=== PATIENT | male | born 1970 | race Caucasian/White ===

== ENCOUNTER → 2017-02-26 | Outpatient (CLI) | payer MEDICARE, OTHER ==
--- NOTE | 2017-02-26 10:51 | RAD ---
Indication chronic left testicular pain. Grayscale color Doppler and spectral imaging was performed. Examination was targeted to the scrotum. The right testicle measures 3.6 x 2.9 x 2 cm and appears normal. There is normal flow to the testicle. The epididymis appears unremarkable. There is a small hydrocele. The left testicle appears normal. No mass is seen. There is normal flow. The epididymis appears unremarkable. A small hydrocele is noted, slightly larger than on the right. IMPRESSION: Normal testicles. Small hydroceles.
== END | disposition home or self-care (01) ==
LOC: US 09:14
PROVIDERS: ATTEND Urology
DX: N43.3 Hydrocele, unspecified (principal)
CPT/HCPCS: 76870

== ENCOUNTER → 2017-08-06 | Outpatient (CLI) | payer MEDICARE, OTHER | END | disposition home or self-care (01) | LOC: SURG 12:14 | PROVIDERS: ATTEND Anesthesiology | DX: M47.26 Other spondylosis with radiculopathy, lumbar region (principal); M79.1 Myalgia | CPT/HCPCS: 82947; 99214 ==

== ENCOUNTER → 2017-09-04 | Outpatient (CLI) | payer MEDICARE, OTHER ==
[~2017-09-04] MED LIST: BUPIVACAINE MPF 0.25% 10 ML VIAL. ONE; DEXAMETHASONE SOD PHOS 4 MG/ML VIAL ONE; IOHEXOL 300 MG/ML 50 ML VIAL. ONE; LIDOCAINE 1% PF 30 ML VIAL. ONE
== END | disposition home or self-care (01) ==
LOC: SURG 12:05
PROVIDERS: ATTEND Anesthesiology
DX: M54.16 Radiculopathy, lumbar region (principal)
CPT/HCPCS: 64483; 64484; J1100; J2001; J3490; Q9967

== ENCOUNTER 2019-01-12 14:10 | Emergency (ER) | payer MEDICARE, OTHER ==
[~2019-01-12] VITALS: Ht 170.2 cm; Wt 82.6 kg
[2019-01-12] MEDS ORDERED: ASPIRIN 81 MG TAB.CHEW PO ONE (14:30)
[2019-01-12 14:43] LABS: BASO # 0.3 x10^3/uL (0.0-0.2); BASO % 1 % (0-3); EOS % 0 % (0-3); HEMATOCRIT 51.3 % (39.0-53.0); HEMOGLOBIN 15.7 g/dL (13.0-17.5); LYMPH # 0.5 x10^3/uL (1.0-4.8); LYMPH % 2 % (24-48); MEAN CORPUSCULAR HEMOGLOBIN 29 pg (25-35); MEAN CORPUSCULAR HGB CONC 31 g/dL (31-37); MEAN CORPUSCULAR VOLUME 96 fL (79-100); MONO # 1.7 x10^3/uL (0.0-1.1); MONO % 8 % (0-9); NEUT # 18.4 x10^3uL (1.8-7.7); NEUT % 88 % (31-73); PLATELET COUNT 370 x10^3/uL (140-400); RED BLOOD COUNT 5.33 x10^6/uL (4.30-5.70); RED CELL DISTRIBUTION WIDTH 15.5 % (11.5-14.5); WHITE BLOOD COUNT 20.8 x10^3/uL (4.0-11.0)
[2019-01-12] MEDS ORDERED: IV NORMAL SALINE 1,000ML 1,000 ML IV ONE ×3 (14:45→16:15)
[2019-01-12] MEDS ORDERED: INSULIN REGULAR 100 UNIT/ML 3ML VIAL. IV ONE ×2 (14:45→15:15)
--- NOTE | 2019-01-12 14:46 | PHYS DOC ---
Adult General Chief Complaint Chief Complaint: SHORTNESS OF BREATH [facility] HPI 48-year-old male presents via EMS with shortness of breath. Patient states that he has been feeling short of breath and had central chest pain for the last 3 days. He does not describe the pain to me. Patient only answers questions he wants to answer. The patient states that his pain is 10 out of 10. He has not had any aspirin. He denies history of cardiac problems. He does have diabetes. The patient has had a wet sounding cough but no expectorated sputum. He denies fever or chills. The only surgery he admits to is removal of his spleen. He denies alcohol or drug use. When I ask him about the mass in his left arm, he tells admits been there for "a while". Review of Systems Review of Systems Constitutional: Fever and chills[] Eyes: Denies change in visual acuity, redness, or eye pain [] HENT: Denies nasal congestion or sore throat [] Respiratory: Cough with shortness of breath [] Cardiovascular: No additional information not addressed in HPI [] GI: Denies abdominal pain, nausea, vomiting, bloody stools or diarrhea [] : Denies dysuria or hematuria [] Musculoskeletal: Denies back pain or joint pain [] Integument: possible cellulitis [] Neurologic: Denies headache, focal weakness or sensory changes [] Endocrine: Denies polyuria or polydipsia [] All other systems were reviewed and found to be within normal limits, except as documented in this note. Current Medications Current Medications Current Medications Medications (Trade) Dose Ordered [facility] Start Time Stop Time Status Last Admin Dose Admin Aspirin (Children'S Aspirin) 324 mg 1X ONCE 01/12/19 14:30 01/12/19 14:31 UNV Allergies Allergies Allergies Coded Allergies Type Severity Reaction Last Updated Verified No Known Drug Allergies 01/12/19 No Physical Exam Physical Exam Constitutional: Well developed, well nourished, no acute distress, non-toxic appearance. [] HENT: Normocephalic, atraumatic, bilateral external ears normal, oropharynx moist, no oral exudates, nose normal. [] Eyes: PERRLA, EOMI, conjunctiva normal, no discharge. [] Neck: Normal range of motion, no tenderness, supple, no stridor. [] Cardiovascular:Heart rate regular rhythm, no murmur [] Lungs & Thorax: Bilateral breath sounds decreased but clear to auscultation [] Abdomen: Bowel sounds normal, soft, no tenderness, no masses, no pulsatile masses. [] Skin: 5 cm mass in the left forearm, possibly fluctuant with continued surrounding erythema another 4 cm.[] Back: No tenderness, no CVA tenderness. [] Extremities: No tenderness, no cyanosis, no clubbing, ROM intact, no edema. [] Neurologic: Alert and oriented X 3, normal motor function, normal sensory function, no focal deficits noted. [] Psychologic: Affect normal, judgement normal, mood normal. [] EKG EKG Sinus rhythm, rate 75, wide QRS complexes at 154, no ST elevation or depressions [] Radiology/Procedures Radiology/Procedures [] Impressions: EXAM: Chest, single view. HISTORY: Shortness of air. COMPARISON: None. FINDINGS: A frontal view of the chest is obtained. There is suspected bilateral lower lobe atelectasis. There is no consolidation, pleural effusion or pneumothorax. The heart is normal in size. IMPRESSION: Suspected bilateral lower lobe atelectasis. Electronically signed by: Gay Ashton MD (01/12/2019 2:58 PM) [facility] DICTATED AND SIGNED BY: GAY ASHTON MD DATE: 01/12/19 1458 CC: DARIO MUNOZ DO; JOSEPHINE COLÓN SENIOR MECHANICAL ENGINEER ~ Course & Med Decision Making Course & Med Decision Making Pertinent Labs and Imaging studies reviewed. (See chart for details) On arrival the patient's blood sugars over 500. We'll give him a liter of normal saline. His workup is pending. The patient was lying in bed and we are waiting for his labs, he began to go into an irregular rhythm with a rate of 152. It appeared to be ventricular fibrillation on the monitor. The patient is still awake and able to answer questions. ECG shows a regular rhythm which looks like wide complex tachycardia, rate 152, QRS of 164. Immediate defibrillation is not indicated given his stable blood pressure and the fact that he appears to be tolerating this increased rate. We will give him 150 mg of amiodarone over 10 minutes. I shared the ECG with Dr. العراقي and he did not see any acute cardiac cause. The patient's potassium is 5.9. His blood sugar is over 600. His anion gap is 32. His BUN is 40 and his creatinine is 1.9. He has been given 20 units of insulin IV as well as 2L normal saline. We did additionally give 1 g of calcium gluconate and 1 amp of bicarbonate. I will give an additional amp of bicarbonate and another liter of saline when available. The 150 mg bolus of amiodarone slow the patient's heart rate to 108 temporarily. We will start an amniodarone drip. The patient stabilized and his heart rate improved to 89 with back into sinus rhythm. A Hines has been inserted and 40mg of lasix IV was given. I discussed the patient with Dr. King the hospitalist at [facility] and he has accepted the patient for transfer and admission to the ICU. Greater than 35 minutes of critical care time was spent on this patient exclusive of other billable procedures. [] Dragon Disclaimer Dragon Disclaimer This electronic medical record was generated, in whole or in part, using a voice recognition dictation system. Departure Departure: Impression: Primary Impression: Wide-complex tachycardia Additional Impressions: Acute kidney failure DKA (diabetic ketoacidoses) Dehydration Hyperkalemia Cellulitis of left arm Disposition: 02 XFER SHT-TRM HOSP Condition: GUARDED Referrals: JOSEPHINE COLÓN SENIOR MECHANICAL ENGINEER (PCP) Problem Qualifiers Additional Impressions: Acute kidney failure Acute renal failure type: unspecified Qualified Codes: N17.9 - Acute kidney failure, unspecified DKA (diabetic ketoacidoses) Diabetes mellitus type: type 2 Diabetes mellitus complication detail: without coma Qualified Codes: E11.10 - Type 2 diabetes mellitus with ketoacidosis without coma DARIO MUNOZ DO Jan 12, 2019 14:46
[2019-01-12 14:59] LABS: ALBUMIN 3.6 g/dL (3.4-5.0); ALBUMIN/GLOBULIN RATIO 0.8 (1.0-1.7); ALK PHOS 121 U/L (46-116); ALT (SGPT) 106 U/L (16-63); AST (SGOT) 387 U/L (15-37); BLOOD UREA NITROGEN 40 mg/dL (8-26); BUN/CREATININE RATIO 21 (6-20); CALCIUM 9.3 mg/dL (8.5-10.1); CHLORIDE 90 mmol/L (98-107); CREATININE 1.9 mg/dL (0.7-1.3); GFR 37.7; POTASSIUM 5.9 mmol/L (3.5-5.1); SODIUM 127 mmol/L (136-145); TOTAL BILIRUBIN 0.7 mg/dL (0.2-1.0); TOTAL PROTEIN 8.4 g/dL (6.4-8.2)
[2019-01-12 14:59] LABS: INFLUENZA A PATIENT NEGATIVE (NEGATIVE); INFLUENZA B PATIENT NEGATIVE (NEGATIVE)
--- NOTE | 2019-01-12 15:01 | RAD ---
EXAM: Chest, single view. HISTORY: Shortness of air. COMPARISON: None. FINDINGS: A frontal view of the chest is obtained. There is suspected bilateral lower lobe atelectasis. There is no consolidation, pleural effusion or pneumothorax. The heart is normal in size. IMPRESSION: Suspected bilateral lower lobe atelectasis. Electronically signed by: Gay Ramesh MD (01/12/2019 2:58 PM) [facility]
[2019-01-12 15:07] LABS: ANION GAP 32 (6-14)
[2019-01-12 15:10] LABS: CARBON DIOXIDE < 5 mmol/L (21-32); GLUCOSE 671 mg/dL (70-99)
[2019-01-12] MEDS ORDERED: CALCIUM GLUCONATE 1,000 MG/10 ML VIAL ONE (15:12)
[2019-01-12] MEDS ORDERED: CALCIUM GLUCONATE 1,000 MG/10 ML VIAL IV ONE (15:15)
[2019-01-12] MEDS ORDERED: SODIUM BICARB ADULT 8.4% 50 MEQ/50 ML DISP.SYRIN. IV ONE ×2 (15:15→16:15)
[2019-01-12 15:21] LABS: BARBITURATES NEG (NEG); BENZODIAZEPINES NEG (NEG); CANNABINOIDS POS (NEG); COCAINE NEG (NEG); METHADONE NEG (NEG); OPIATES NEG (NEG); PHENCYCLIDINE NEG (NEG)
[2019-01-12 15:22] LABS: AMPHETAMINE/METHAMPHETAMINE NEG (NEG)
[2019-01-12 15:24] LABS: BILIRUBIN,URINE NEG (NEG); CLARITY,URINE CLEAR; COLOR,URINE YELLOW; GLUCOSE,URINE 500 mg/dL (NEG)
[2019-01-12 15:25] LABS: BACTERIA,URINE 0 /HPF (0-FEW); NITRITE,URINE NEG (NEG); RBC,URINE OCC /HPF (0-2); SQUAMOUS EPITHELIAL CELL,UR FEW /LPF; UROBILINOGEN,URINE 0.2 mg/dL (0.2 mg/dL); WBC,URINE OCC /HPF (0-4)
[2019-01-12] MEDS ORDERED: IV DEXTROSE 5% 100 ML IV ONE (15:39)
[2019-01-12] MEDS ORDERED: AMIODARONE 150 MG in IV DEXTROSE 5% 100 ML IVP ONE (15:45)
[2019-01-12 15:47] LABS: % BANDS 3 % (0-9); % LYMPHS 1 % (24-48); % MONOS 7 % (0-10); % SEGS 89 % (35-66); PLT ESTIMATE ADEQUATE (ADEQUATE)
[2019-01-12] MEDS ORDERED: AMIODARONE 900 MG in IV DEXTROSE 5% 500 ML IV ONE (16:00)
[2019-01-12] MEDS ORDERED: SODIUM BICARB PED 8.4% 10 MEQ/10 ML DISP.SYRIN. IV ONE (16:15)
[2019-01-12] MEDS ORDERED: FUROSEMIDE 40 MG/4 ML VIAL IVP ONE (16:15)
[2019-01-12] MEDS ORDERED: SODIUM BICARB ADULT 8.4% 50 MEQ/50 ML DISP.SYRIN. ONE (17:00)
[2019-01-12 19:15] VITALS: BP 123/70
--- NOTE | 2019-01-13 12:26 | EKG ---
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
--- NOTE | 2019-01-13 12:33 | EKG ---
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
== END 2019-01-12 19:49 | disposition short-term general hospital (02) ==
LOC: ER 14:22
DX: R00.0 Tachycardia, unspecified (principal); N17.9 Acute kidney failure, unspecified; E11.10 Type 2 diabetes mellitus with ketoacidosis without coma; E86.0 Dehydration; E87.5 Hyperkalemia; L03.113 Cellulitis of right upper limb
CPT/HCPCS: 36415; 51702; 71045; 80053; 80307; 81001; 82947; 83880; 84484; 85007; 85025; 87804; 93005; 96361; 96365; 96366; 96375; 96376; 99291; J0282; J0610; J1815; J1940; J7030

== ENCOUNTER → 2019-09-24 | Outpatient (CLI) | payer MEDICARE, OTHER ==
[~2019-09-24] MED LIST changes: -BUPIVACAINE MPF 0.25% 10 ML VIAL. ONE; -DEXAMETHASONE SOD PHOS 4 MG/ML VIAL ONE; -IOHEXOL 300 MG/ML 50 ML VIAL. ONE; +IOHEXOL 300 MG/ML 75 ML VIAL. IV ONE; -LIDOCAINE 1% PF 30 ML VIAL. ONE
[2019-09-24 10:13] LABS: CREATININE 1.1 mg/dL (0.7-1.3); GFR 70.9
--- NOTE | 2019-09-24 16:26 | RAD ---
Examination: CT CHEST W/CONTRAST History: Sternal pain. Status post CABG. Comparison/Correlation: None Findings: Axial images of the chest were obtained following IV contrast. Sternal wires are present. There is a fluid collection throughout the length of the sternotomy extending from the level of the manubrium to the xiphoid process. This fluid collection measures up to 5.2 cm anteroposterior by 2.1 cm transverse by 20.5 cm longitudinal. Circumferential thickened wall about this collection is noted. This collection abuts the anterior mediastinum. Multiple old anterolateral right rib fractures are present. Right posterior lower thoracic rib fracture also seen. Old left lower lateral rib fractures are also present. No infiltrates or pleural effusion. No pericardial effusion. Thoracic aorta is unremarkable. No enlarged thoracic lymph nodes. Cholecystectomy noted. Left renal superior pole cyst is present. Absence of the spleen consistent with surgical history noted. Atrophy of the pancreatic body and tail is notable. Posterior to the stomach, there is a 6.4 cm x transverse 4 cm x 5.6 cm longitudinal well-circumscribed complex collection or mass with Hounsfield units of 70. Impression: Large postoperative seroma is noted throughout the entire extent of the sternotomy. Posterior left subdiaphragmatic mass or collection. This may represent a complex seroma or old complex hematoma related to previous surgical intervention. Correlate with prior exams if available and history in determining further interval evaluation with CT of the abdomen without and with contrast to further characterize. No infiltrate. PQRS Compliance Statement: One or more of the following individualized dose reduction techniques were utilized for this examination: 1. Automated exposure control 2. Adjustment of the mA and/or kV according to patient size 3. Use of iterative reconstruction technique Electronically signed by: Chidi Miller MD (09/24/2019 4:22 PM) [facility]
== END | disposition home or self-care (01) ==
LOC: CT 09:01
PROVIDERS: ATTEND Surgery Vascular Surgery
DX: T82.218A Other mechanical complication of coronary artery bypass graft, initial encounter (principal); N28.1 Cyst of kidney, acquired; K86.89 Other specified diseases of pancreas; Z95.1 Presence of aortocoronary bypass graft; Z90.49 Acquired absence of other specified parts of digestive tract; Z90.89 Acquired absence of other organs; Y83.2 Surgical operation with anastomosis, bypass or graft as the cause of abnormal reaction of the patient, or of later complication, without mention of misadventure at the time of the procedure; Y71.3 Surgical instruments, materials and cardiovascular devices (including sutures) associated with adverse incidents; Y92.89 Other specified places as the place of occurrence of the external cause
CPT/HCPCS: 71260; 82565; 84520; Q9967

== ENCOUNTER → 2019-09-29 | Outpatient (CLI) | payer MEDICARE, OTHER ==
--- NOTE | 2019-09-29 16:22 | RAD ---
EXAM: Ultrasound neck soft tissues. HISTORY: Palpable cervical foci and neck pain. COMPARISON: None. FINDINGS: Sonographic evaluation of the abdominal site of concern along the left submandibular region was performed. This reveals a prominent lymph node with thickened cortex measuring 2.2 x 2.0 x 1.2 cm. Multiple smaller nodes in the left neck also have prominent cortices and measure up to 3.0 x 2.0 x 0.9 cm. Images of the right neck were also obtained. This reveals a small lymph node measuring 6 mm. IMPRESSION: 1. Multiple enlarged left lymph nodes correspond with the site of concern along the left neck. These are indeterminate but likely reactive in the absence of known malignancy. Imaging follow-up after treatment is recommended. These are amenable to percutaneous ultrasound guided biopsy if the diagnosis remains unclear. Electronically signed by: Tootie Figueroa MD (09/29/2019 4:18 PM) [facility]
== END | disposition home or self-care (01) ==
LOC: US 12:27
PROVIDERS: ATTEND Family Medicine
DX: M53.82 Other specified dorsopathies, cervical region (principal)
CPT/HCPCS: 76536

== ENCOUNTER 2020-01-04 11:28 | Emergency (ER) | payer MEDICARE, OTHER ==
[~2020-01-04] VITALS: Ht 170.2 cm; Wt 94.0 kg
[2020-01-04 11:30] VITALS: BP 110/70
--- NOTE | 2020-01-04 12:03 | PHYS DOC ---
Past History Past Medical History: COPD, Hypertension Past Surgical History: Spleenectomy Alcohol Use: None Drug Use: Other Adult General Chief Complaint Chief Complaint: KNEE INJURY [facility] HPI Patient is a 49-year-old male who presents with complaint of right knee, left ankle and foot and lower back pain after falling yesterday. Patient states that he was drinking something when he started to choke and when he choked, his legs gave out on him and he fell. Patient rates his pain as moderate.[] Review of Systems Review of Systems Constitutional: Denies fever or chills [] Respiratory: Denies cough or shortness of breath [] Cardiovascular: No additional information not addressed in HPI [] Musculoskeletal: Denies back pain or joint pain [] Integument: Positive left ankle and foot, right knee and lower back lesions [] Neurologic: Denies headache, focal weakness or sensory changes [] Allergies Allergies Allergies Coded Allergies Type Severity Reaction Last Updated Verified No Known Drug Allergies 01/12/19 No Physical Exam Physical Exam Constitutional: Well developed, well nourished, no acute distress, non-toxic appearance. [] Cardiovascular:Heart rate regular rhythm, no murmur [] Lungs & Thorax: Bilateral breath sounds clear to auscultation [] Back: There is tenderness to palpation in the left lower lumbar paraspinal musculature. [] Extremities: Examination of right knee demonstrates tenderness to palpation overlying the MCL upper portion. No ligamentous laxity is noted on exam. Left ankle and foot demonstrates no appreciable visible abnormality but there is tenderness anteriorly around the mortise. [] Neurologic: Alert and oriented X 3, no focal deficits noted. [] Current Patient Data Vital Signs Vital Signs Date Time Temp Pulse Resp B/P (MAP) Pulse Ox O2 Delivery O2 Flow Rate FiO2 01/04/20 11:30 98.2 84 18 110/70 (83) 97 Room Air EKG EKG [] Radiology/Procedures Radiology/Procedures [] Impressions: X-ray imaging of the lumbar spine as well as the right knee and left ankle and foot demonstrates no acute bony abnormalities. Course & Med Decision Making Course & Med Decision Making Pertinent Labs and Imaging studies reviewed. (See chart for details) [] Dragon Disclaimer Dragon Disclaimer This electronic medical record was generated, in whole or in part, using a voice recognition dictation system. Departure Departure: Impression: Primary Impression: Right knee pain Additional Impressions: Left foot pain Low back strain Disposition: 01 HOME, SELF-CARE Condition: STABLE Referrals: ANDERS ALAN MD (PCP) Patient Instructions: Lumbosacral Strain, Musculoskeletal Pain Scripts Tramadol Hcl (TRAMADOL HCL) 50 Mg Tablet 50 MG PO PRN Q6HRS PRN for PAIN, #12 TAB Prov: JULIANO PAYNE Jr. DO 01/04/20 Orphenadrine Citrate (ORPHENADRINE CITRATE) 100 Mg Tablet.er 1 TAB PO BID PRN for MUSCLE SPASMS, #14 TAB Prov: JULIANO PAYNE Jr. DO 01/04/20 Naproxen (NAPROSYN) 500 Mg Tablet 1 TAB PO BID PRN for PAIN, #20 TAB 0 Refills Prov: JULIANO PAYNE Jr. DO 01/04/20 Problem Qualifiers Primary Impression: Right knee pain Chronicity: acute Qualified Codes: M25.561 - Pain in right knee Additional Impressions: Low back strain Encounter type: initial encounter Qualified Codes: S39.012A - Strain of muscle, fascia and tendon of lower back, initial encounter JULIANO PAYNE Jr. DO Jan 04, 2020 12:03
--- NOTE | 2020-01-04 12:39 | RAD ---
AP, oblique, and lateral views of the right knee were obtained. Indication: Pain after fall Comparison: none. Findings: No fracture, dislocation, significant degenerative changes, or effusion is seen. Impression: 1. Unremarkable examination of the right knee. Electronically signed by: Toney Anderson MD (01/04/2020 12:36 PM) [id number]
--- NOTE | 2020-01-04 12:41 | RAD ---
FOOT LEFT 3V, ANKLE LEFT 3V History: Fall. Pain. Technique: 3 views left ankle and 3 views left foot Comparison: None. Findings: Internal fixation distal fibula and medial malleolus healed fractures. Symmetric ankle mortise. No acute fracture. Linear density within the distal tibia, may relate to prior trauma. Normal alignment of the foot. No fracture. Impression: 1. No acute osseous abnormality. 2. Prior internal fixation distal fibula and medial malleolus. Electronically signed by: Mikel Melendez DO (01/04/2020 12:38 PM) [id number]
--- NOTE | 2020-01-04 12:43 | RAD ---
LUMBAR SPINE 2-3V History: Fall. Pain. Technique: 3 views lumbar spine. Comparison: None. Findings: Mild grade 1 anterolisthesis L5 on S1. Otherwise, normal alignment. Normal vertebral body height. No fracture. Mild multilevel degenerative disc changes. Moderate lower lumbar facet arthropathy. Surgical clips right upper quadrant. Impression: 1. No acute osseous abnormality. 2. Multilevel lumbar spondylosis. 3. Grade 1 anterolisthesis L5 on S1. Electronically signed by: Mikel Melendez DO (01/04/2020 12:40 PM) [id number]
[2020-01-04] MEDS ORDERED: TRAM50TA PO (13:04)
[2020-01-04] MEDS ORDERED: ORPH-16 PO (13:04)
[2020-01-04] MEDS ORDERED: NAPR-683 PO (13:04)
== END 2020-01-04 13:30 | disposition home or self-care (01) ==
LOC: ER 11:28
DX: S39.012A Strain of muscle, fascia and tendon of lower back, initial encounter (principal); M79.672 Pain in left foot; M25.561 Pain in right knee; J44.9 Chronic obstructive pulmonary disease, unspecified; I10 Essential (primary) hypertension; W18.39XA Other fall on same level, initial encounter; Y93.89 Activity, other specified; Y92.89 Other specified places as the place of occurrence of the external cause; Y99.8 Other external cause status
CPT/HCPCS: 72100; 73562; 73610; 73630; 99284

== ENCOUNTER → 2020-04-11 | Outpatient (CLI) | payer MEDICARE, OTHER ==
[~2020-04-11] MED LIST changes: +CONTRAST GIVEN MC PRN; -IOHEXOL 300 MG/ML 75 ML VIAL. IV ONE; +IOHEXOL 350 MG/ML 100 ML VIAL. IV ONE; +NAPR-683 PO; +ORPH-16 PO; +TRAM50TA PO
--- NOTE | 2020-04-11 15:13 | RAD ---
CT ANGIOGRAPHY CHEST INDICATION: Reason: ELEVATED D DIMER SOB COUGH CHEST PAIN / Spl. Instructions: / History: . Comparison: 09/24/2019. TECHNIQUE: Following the uneventful administration of intravenous contrast, 100 cc Omnipaque 350, axial CT sections were obtained through the lungs and upper abdomen. Multiplanar reconstructions and MIP images were obtained. [facility] compliance statement: One or more of the following individualized dose reduction techniques were utilized for this examination: 1. Automated exposure control 2. Adjustment of the mA and/or kV according to patient size 3. Use of iterative reconstruction technique FINDINGS: Lungs and Airways: No pulmonary mass or consolidation. No abnormality of the central airways. Pleura: The pleural spaces are normal. Heart and Mediastinum: The visualized thyroid is normal in size and attenuation. No axillary or supraclavicular lymphadenopathy. No mediastinal, hilar or retrocrural lymphadenopathy. Cardiomegaly. Coronary artery atherosclerotic disease. No pericardial effusion. The great vessels of the thorax are normal. Abdomen: Cholecystectomy. Splenectomy. Left subdiaphragmatic mass measuring 6 x 4 cm is stable since 2014, possibly residual splenic fragment. Bones and Soft Tissues: Degenerative changes spine. Median sternotomy with dehiscence measuring 3.2 cm in width, increased from 09/24/2019. Fluid collection extending along the sternotomy has decreased since 09/24/2019. IMPRESSION: 1. No evidence of pulmonary thromboembolic disease. 2. No pulmonary mass or consolidation. 3. Dehiscent median sternotomy, with progressive widening since 09/24/2019. Electronically signed by: Ranjan Eduardo MD (04/11/2020 3:10 PM) [facility]
== END ==
LOC: CT 13:33
PROVIDERS: ATTEND Family Medicine
DX: R07.89 Other chest pain (principal); R79.89 Other specified abnormal findings of blood chemistry
CPT/HCPCS: 71275; Q9967

== ENCOUNTER → 2020-11-01 | Outpatient (CLI) | payer MEDICARE, OTHER ==
[~2020-11-01] MED LIST changes: -CONTRAST GIVEN MC PRN; -IOHEXOL 350 MG/ML 100 ML VIAL. IV ONE
--- NOTE | 2020-11-01 18:27 | CARD ---
MR#: [id number] Date of Study: 11/01/2020 Ordering Physician: BRYNN RICHARDS, Referring Physician: BRYNN RICHARDS, Tech: Peyton Swan APPROVED REPORT EXAM: Two-dimensional and M-mode echocardiogram with Doppler and color Doppler. Other Information Quality : AverageHR: 81bpm Technically limited study due to body habitus. INDICATION Cardiac Disease: CAD RISK FACTORS Hypertension Hyperlipidemia Diabetes Smoking 2D DIMENSIONS RVDd4.6 (2.9-3.5cm)Left Atrium(2D)3.8 (1.6-4.0cm) IVSd1.0 (0.7-1.1cm)Aortic Root(2D)3.3 (2.0-3.7cm) LVDd5.1 (3.9-5.9cm)LVOT Diameter2.1 (1.8-2.4cm) PWd1.0 (0.7-1.1cm)LVDs2.6 (2.5-4.0cm) FS (%) 47.9 %SV97.0 ml LVEF(%)79.1 (>50%) Aortic Valve AoV Peak Ascencion.138.7cm/sAoV VTI25.8cm AO Peak GR.7.7mmHgLVOT Peak Ascencion.113.3cm/s LVOT VTI 20.41cmAO Mean GR.5mmHg LIVIA (VMAX)2.95va7SCI (VTI)2.80cm2 Mitral Valve MV E Xzqultxu67.6cm/sMV DECEL AIQM511ga MV A Qvsudtzn90.7cm/sE/A Ratio1.1 Pulmonary Valve PV Peak Sdznsgip28.9cm/sPV Peak Grad.2mmHg LEFT VENTRICLE The left ventricle is normal size. There is normal left ventricular wall thickness. The left ventricu lar systolic function is normal and the ejection fraction is within normal range. The Ejection Fracti on is 55%. There is normal LV segmental wall motion. Transmitral Doppler flow pattern is Grade I-abno rmal relaxation pattern. RIGHT VENTRICLE The right ventricle is normal size. There is normal right ventricular wall thickness. The right ventr icular systolic function is normal. ATRIA The left atrium size is normal. The right atrium size is normal. The interatrial septum is intact wit h no evidence for an atrial septal defect or patent foramen ovale as noted on 2-D or Doppler imaging. AORTIC VALVE Grossly normal. Not well visualized. Doppler and Color Flow revealed no significant aortic regurgitat ion. There is no significant aortic valvular stenosis. Calculated aortic valve area is 3.6 cm2 with m aximum pressure gradient of 7 mmHg and mean pressure gradient of 5 mmHg. MITRAL VALVE Grossly normal, not well visualized. There is no evidence of mitral valve prolapse. There is no candy l valve stenosis. Doppler and Color-flow revealed trace mitral regurgitation. TRICUSPID VALVE Grossly normal. Not well visualized. Doppler and Color Flow revealed no tricuspid valve regurgitation noted. There is no tricuspid valve stenosis. PULMONIC VALVE The pulmonic valve is not well visualized. Doppler and Color Flow revealed trace pulmonic valvular re gurgitation. There is no pulmonic valvular stenosis. GREAT VESSELS The aortic root is normal in size. The ascending aorta is normal in size. The IVC is normal in size a nd collapses >50% with inspiration. PERICARDIAL EFFUSION There is no evidence of significant pericardial effusion. Critical Notification Critical Value: No <Conclusion> The left ventricular systolic function is normal and the ejection fraction is within normal range. Th e Ejection Fraction is 55%. There is normal LV segmental wall motion. Technically difficult study. Signed by : Torsten العراقي, Electronically Approved : 11/01/2020 18:27:25
== END ==
LOC: ECHO 12:50
PROVIDERS: ATTEND Internal Medicine Cardiovascular Disease
DX: I25.10 Atherosclerotic heart disease of native coronary artery without angina pectoris (principal)
CPT/HCPCS: 93306

== ENCOUNTER 2021-11-19 17:32 | Emergency (ER) | payer OTHER ==
[~2021-11-19] VITALS: Ht 170.2 cm; Wt 94.0 kg
--- NOTE | 2021-11-19 19:17 | PHYS DOC ---
Past History Past Medical History: COPD, Hypertension Past Surgical History: Spleenectomy, Other Additional Past Surgical Histo: TRIPLE BYPASS Alcohol Use: None Drug Use: Other Adult General Chief Complaint Chief Complaint: MECHANICAL FALL HPI HPI Patient is a 51-year-old male who presents with low back and buttock pain after falling on the ice backwards a week ago. States that the pain is about 6 out of 10, dull and achy in nature. Denies any numbness/weakness/tingling. Denies any trouble sitting, standing or walking. Denies any trouble making urine or stool. States he is taken occasional Tylenol with little to no help. States he has not seen his physician. Review of Systems Review of Systems Review of systems otherwise unremarkable except noted in HPI Allergies Allergies Allergies Coded Allergies Type Severity Reaction Last Updated Verified No Known Drug Allergies 01/12/19 No Physical Exam Physical Exam Constitutional: Well developed, well nourished, no acute distress, non-toxic appearance. [] HENT: Normocephalic, atraumatic, Eyes: conjunctiva normal, no discharge. [] Neck: Normal range of motion, no tenderness, supple, no stridor. [] Cardiovascular:Heart rate regular rhythm, no murmur [] Lungs & Thorax: Bilateral breath sounds clear to auscultation [] Abdomen: soft, no tenderness, no masses, no pulsatile masses. [] Skin: Warm, dry, no erythema, no rash. [] Back: Generalized lumbar paraspinal muscle tenderness with no deformities, bruising or step-offs, no CVA tenderness. [] Extremities: No tenderness, no cyanosis, no clubbing, ROM intact, no edema. [] Neurologic: Alert and oriented X 3, normal motor function, normal sensory function, able to sit, stand and walk without issue, no focal deficits noted. [] Psychologic: Affect normal, judgement normal, mood normal. [] Current Patient Data Vital Signs Vital Signs Date Time Temp Pulse Resp B/P (MAP) Pulse Ox O2 Delivery O2 Flow Rate FiO2 11/19/21 18:21 98.1 77 18 108/60 (76) 95 Room Air EKG EKG [] Radiology/Procedures Radiology/Procedures [] Heart Score C/O Chest Pain: No Risk Factors: Risk Factors: DM, Current or recent (<one month) smoker, HTN, HLP, family history of CAD, obesity. Risk Scores: Risk Factors: DM, Current or recent (<one month) smoker, HTN, HLP, family history of CAD, obesity. Course & Med Decision Making Course & Med Decision Making Patient is a 51-year-old male who presents with low back and buttock pain after slipping on the ice a week ago Vital signs nonconcerning. Physical exam noted above. Given ice and Tylenol. Imaging with no acute osseous abnormalities. Discussed all findings with patient. Discussed symptom management at home. Advised to follow-up with primary care physician. Gave return precautions to the ED. Patient agreeable, verbalized understanding and agreed with plan of discharge [] Dragon Disclaimer Dragon Disclaimer This electronic medical record was generated, in whole or in part, using a voice recognition dictation system. Departure Departure: Impression: Primary Impression: Back pain Disposition: HOME / SELF CARE / HOMELESS Condition: GOOD Referrals: ANDERS ALAN MD (PCP) Patient Instructions: RICE - Routine Care for Injuries Additional Instructions: Thank you for coming into the emergency department tonight and allowing us to take care of you. Please read the attached information carefully to go over things we discussed. You can use Tylenol, ibuprofen and ice packs as needed. Please follow-up with your primary care physician as soon as you can. Please come back with new or concerning symptoms as we discussed. MAXINE MORTON MD Nov 19, 2021 19:17
[2021-11-19] MEDS ORDERED: ACETAMINOPHEN 500 MG TABLET PO ONE (19:30)
--- NOTE | 2021-11-19 20:29 | RAD ---
CT study lumbar spine without contrast Clinical indications: Fell onto back on ice one week ago. Persistent back pain. TECHNIQUE: Noncontrast helical CT scanning of the lumbar spine was performed. Multiplanar 2-D reconst ructions were generated. PQRS compliance Statement One or more of the following individualized dose reduction techniques were utilized for this study: 1. Automated exposure control 2. Adjustment of the mA and/or kV according to patient size 3. Use of iterative reconstruction technique FINDINGS: Transverse processes are intact. No compression fracture or discitis or lytic process is ev ident. There is a grade 1 anterolisthesis of L5-S1 secondary to bilateral facet arthropathy. No spond ylolysis is seen. There is a mild diffuse disc protrusion at this level. There is facet arthropathy m ore prominent on the left side which results in severe narrowing of the left neural foramen. There is moderate to severe narrowing of the right neural foramen at this level. Spinal canal stenosis is onl y mild at this level. There is a diffuse disc protrusion at L4-5. There is a more focally prominent l eft paracentral focal disc protrusion anteriorly which does indent the thecal sac at L4-5. There is f acet arthropathy at L4-5. These findings combine to form a moderate spinal canal is stenosis at L4-5. There is moderate to severe narrowing of the left neural foramen and mild narrowing of the right danisha ral foramen at this level. There is a lytic lesion with endosteal scalloping and thinning of the [place] ex of the posterior left iliac bone. IMPRESSION: No acute compression fracture. Grade 1 anterolisthesis of L5-S1. Spinal canal stenosis at L5-S1 and more prominently at L4-5. There is a prominent left paracentral di sc protrusion at L4-5. There is significant narrowing of the neural foramina at L4-5 and L5-S1. Radiolucent lesion of the left iliac bone. Recommend outpatient MRI study of the posterior left iliac bone/pelvis with and without contrast for further evaluation. Electronically signed by: Frankie Edmond MD (11/19/2021 8:27 PM) [id number]
--- NOTE | 2021-11-19 21:29 | RAD ---
Exam: Sacrum 2 views INDICATION: Fall on ice multiple times TECHNIQUE: Frontal and lateral views of the sacrum and coccyx Comparisons: None FINDINGS: Bone mineralization is normal. No acute or healed fractures. Soft tissues are unremarkable. Joint spa adiel are well-maintained. IMPRESSION: No acute osseous abnormality. Electronically signed by: Margarita Coe MD (11/19/2021 9:27 PM) SIMBA
[2021-11-19 22:29] VITALS: BP 110/66
== END 2021-11-19 20:59 | disposition home or self-care (01) ==
LOC: ER 17:32
DX: M54.59 Other low back pain (principal); J44.9 Chronic obstructive pulmonary disease, unspecified; I10 Essential (primary) hypertension; W00.0XXA Fall on same level due to ice and snow, initial encounter; Y93.89 Activity, other specified; Y92.89 Other specified places as the place of occurrence of the external cause; Y99.8 Other external cause status
CPT/HCPCS: 72131; 72220; 99284

== ENCOUNTER → 2022-01-02 | Outpatient (CLI) | payer MEDICARE, OTHER ==
--- NOTE | 2022-01-02 17:53 | CARD ---
MR#: [id number] Date of Study: 01/02/2022 Ordering Physician: BRYNN WILKINS, Referring Physician: BRYNN WILKINS, Tech: Peyton Swan [facility] APPROVED REPORT EXAM: Two-dimensional and M-mode echocardiogram with Doppler and color Doppler. Other Information Quality : AverageHR: 81bpm INDICATION Cardiac Disease: CAD RISK FACTORS Hypertension Hyperlipidemia Diabetes Smoking 2D DIMENSIONS Left Atrium(2D)4.0 (1.6-4.0cm)IVSd1.0 (0.7-1.1cm) Aortic Root(2D)3.1 (2.0-3.7cm)LVDd5.7 (3.9-5.9cm) LVOT Diameter2.2 (1.8-2.4cm)PWd1.1 (0.7-1.1cm) LVDs4.7 (2.5-4.0cm)FS (%) 27.0 % SV109.4 mlLVEF(%)51.6 (>50%) Aortic Valve AoV Peak Ascencion.133.0cm/sAoV VTI27.9cm AO Peak GR.7.1mmHgLVOT Peak Ascencion.124.7cm/s LVOT VTI 20.61cmAO Mean GR.4mmHg LIVIA (VMAX)3.95pt4VGR (VTI)2.83cm2 Mitral Valve MV E Spwihzxq79.3cm/sMV E Peak Gr.2mmHg MV DECEL [id number] A Pzehvsvi33.0cm/s MV E Mean Gr.1mmHgE/A Ratio1.2 Pulmonary Valve PV Peak Idgvxazg397.0cm/sPV Peak Grad.4mmHg Tricuspid Valve TR P. Ylpfueor256zz/sRAP [id number] TR Peak Gr.16axNpJFKP11otLd LEFT VENTRICLE The left ventricle is normal size. There is mild concentric left ventricular hypertrophy. The left ve ntricular systolic function is normal. The Ejection Fraction is 55%. There is normal LV segmental wal l motion. Transmitral Doppler flow pattern is Grade I-abnormal relaxation pattern. RIGHT VENTRICLE The right ventricle is borderline dilated. The right ventricle is borderline hypertrophied. The right ventricular systolic function is normal. ATRIA The left atrium size is normal. The right atrium size is normal. The interatrial septum is intact wit h no evidence for an atrial septal defect or patent foramen ovale as noted on 2-D or Doppler imaging. AORTIC VALVE The aortic valve is normal in structure and function. Doppler and Color Flow revealed no significant aortic regurgitation. There is no significant aortic valvular stenosis. Calculated aortic valve area is 3.3 cm2 with maximum pressure gradient of 7 mmHg and mean pressure gradient of 3 mmHg. MITRAL VALVE The mitral valve is normal in structure and function. There is no evidence of mitral valve prolapse. There is no mitral valve stenosis. Doppler and Color Flow revealed no mitral valve regurgitation note d. TRICUSPID VALVE The tricuspid valve is normal in structure and function. Doppler and Color Flow revealed trace tricus pid regurgitation with an estimated PAP of 20 mmHg. There is no tricuspid valve stenosis. PULMONIC VALVE The pulmonary valve is normal in structure and function. Doppler and Color Flow revealed trace pulmon ic valvular regurgitation. GREAT VESSELS The aortic root is normal in size. The ascending aorta is normal in size. The IVC is normal in size a nd collapses >50% with inspiration. PERICARDIAL EFFUSION There is no evidence of significant pericardial effusion. Critical Notification Critical Value: No <Conclusion> The left ventricular systolic function is normal. The Ejection Fraction is 55%. There is normal LV segmental wall motion. Transmitral Doppler flow pattern is Grade I-abnormal relaxation pattern. Trace tricuspid regurgitation with an estimated PAP of 20 mmHg. There is no evidence of significant pericardial effusion. Signed by : Brynn Wilkins, Electronically Approved : 01/02/2022 17:53:00
== END ==
LOC: ECHO 09:48
PROVIDERS: ATTEND Internal Medicine Cardiovascular Disease
DX: I51.7 Cardiomegaly (principal); I25.10 Atherosclerotic heart disease of native coronary artery without angina pectoris
CPT/HCPCS: 93306